=== PATIENT | female | born 1955 | race Caucasian/White ===

== ENCOUNTER → 2020-02-03 09:48 | Outpatient (CLI) | payer OTHER, SELFPAY ==
[2020-02-03 10:43] LABS: Estimated Glomerular Filt Rate > 60.0 mL/min (>60)
--- NOTE | 2020-02-03 10:50 | DI.CT.S_ITS ---
PROCEDURE: CT SOFT TISSUE NECK W CON INDICATIONS: Dysphonia TECHNIQUE: After the administration of intravenous contrast, 3.0 mm axial sections acquired from the sella to the aortic arch. Additional oblique axial 3.0 mm sections acquired through the pharynx. 3 mm thick coronal and sagittal reformats were generated. For radiation dose reduction, the following was used: automated exposure control. COMPARISON: None. FINDINGS: Image quality: Excellent. Lymph nodes: No enlarged lymph nodes seen throughout the neck. Vessels: Visualized vasculature appears patent. There is narrowing of the left brachiocephalic vein, with associated collateral vein formation. Neck spaces: The thyroid cartilage and the hyoid bone demonstrate an unremarkable appearance, without fractures or other deformities. The oropharynx, nasopharynx, and pharynx demonstrate no mucosal lesions. The vocal cords, false vocal cords, pyriform sinuses, epiglottis, vallecula, and tongue base all appear normal. Extramucosal spaces appear unremarkable. Glands: The parotid and submandibular glands appear normal. Thyroid gland demonstrates no significant CT abnormality. Miscellaneous: Visualized brain and orbits appear normal. Lung apices appear clear. Superficial soft tissues appear normal. Bones: No suspicious bony lesions. Visualized sinuses and mastoids appear unremarkable. Relatively prominent cervical spine degenerative changes are seen. There is reversal of the normal cervical lordosis, with the apex at the C5-C6 level. IMPRESSION: No imaging explanation is found for this patient's presenting symptoms. Relatively prominent cervical spine degenerative changes are noted. Narrowing of the left brachiocephalic vein can be seen, with associated collateral vein formation. Dictated by: John Laird M.D. on 02/03/2020 at 10:18 Approved by: John Laird M.D. on 02/03/2020 at 10:20
== END ==
PROVIDERS: PCP Family Medicine; Referring Provider Otolaryngology; Visit Provider Otolaryngology
DX: R49.0 Dysphonia (principal); M47.812 Spondylosis without myelopathy or radiculopathy, cervical region; Z91.041 Radiographic dye allergy status
CPT/HCPCS: 36415; 70491; 82565; Q9967

== ENCOUNTER → 2023-02-01 08:35 | Outpatient (CLI) | payer MEDICARE, MEDICAID, SELFPAY ==
--- NOTE | 2023-02-01 08:37 | DI.MRI.S_ITS ---
PROCEDURE: MR ANKLE RT WO CON INDICATIONS: R/O OCCULT FRACTURE/LUMBAR RADICULOPATHY TECHNIQUE: Noncontrast sagittal T1 spin echo and T2 fast spin echo with fat saturation, axial proton density fast spin echo and T2 fast spin echo with fat saturation, coronal T1 spin echo and T2 fast spin echo with fat saturation through the ankle/hindfoot. COMPARISON: None. FINDINGS: Image quality: Excellent. Bones and joints: Significant marrow edema involving distal portion of lateral malleolus is seen with subtle internal linear hypointense signal concerning for incomplete/nondisplaced lateral malleolus fracture. Osteoarthritic changes are noted throughout midfoot and hindfoot joints. No other fracture or dislocation. No gross osteochondral injuries of talar dome. Small amount of tibiotalar and subtalar joint effusion is seen, no gross loose bodies. Medial structures: The posterior tibialis tendon is thickened with small amount of fluid distending tendon sheath. The flexor digitorum longus, and flexor hallucis longus tendons are intact. The posterior tibial neurovascular bundle appears normal within the tarsal tunnel, without extrinsic mass effect. The deep layer (anterior and posterior tibiotalar ligaments) and superficial layer (tibionavicular, tibiospring, and tibiocalcaneal ligaments) of the deltoid ligament appear normal. The spring ligament components (superomedial calcaneonavicular, medioplantar oblique calcaneonavicular, and inferoplantar longitudinal ligaments) are intact. Lateral structures: The anterior talofibular, calcaneofibular, and posterior talofibular ligaments appear thickened with intrasubstance T2 hyperintense signal.. More superiorly, the anterior and posterior tibiofibular ligaments appear intact, as is the intermalleolar ligament. The tibiofibular syndesmosis is normal in width at 2 mm or less. The peroneus longus and brevis tendons are thickened with small to moderate amount of fluid distending tendon sheath extending from the level of lateral malleolus to their distal insertions. Adjacent bony peroneal tubercle and retrotrochlear prominence are normal in size. The sinus tarsi demonstrates normal fatty signal, without edema, fibrosis, or cyst formation. Visualized sinus tarsi components (cervical ligament, interosseous talocalcaneal ligament, roots of the inferior extensor retinaculum) appear normal. The calcaneonavicular and calcaneocuboid components of the bifurcate ligament appear intact. The dorsal calcaneocuboid ligament appears intact. Anterior structures: The tibialis anterior, extensor hallucis longus, and extensor digitorum longus tendons appear intact. The dorsal talonavicular ligament appears intact. Posterior and plantar structures: Achilles tendon is intact. Medial and lateral bands of the plantar fascia are of normal thickness. No abductor digiti quinti muscle atrophy to suggest Brian neuropathy. IMPRESSION: 1. Finding is concerning for incomplete/nondisplaced fracture involving distal portion of lateral malleolus as described above. No other fracture or dislocation. 2. [id number] midfoot and hindfoot joint osteoarthritis. No gross osteochondral injuries. Small to moderate joint effusion, no gross loose bodies. 3. Low-grade tenosynovitis involving posterior tibialis tendon and peroneus tendons as above. No ankle tendon rupture. 4. Low to moderate grade sprain/partial-thickness tear involving anterior and posterior talofibular ligaments and calcaneofibular ligament. Dictated by: Veto Hamilton M.D. on 02/03/2023 at 10:25 Approved by: Veto Hamilton M.D. on 02/03/2023 at 10:31
--- NOTE | 2023-02-01 08:38 | DI.MRI.S_ITS ---
PROCEDURE: MR LUMBAR SPINE WO CON INDICATIONS: R/O OCCULT FRACTURE/LUMBAR RADICULOPATHY TECHNIQUE: Noncontrast sagittal T1 spin echo and T2 fast echo, sagittal STIR, and T2 fast spin echo through the lumbar spine. In cases with scoliosis, additional coronal T2 fast spin echo may be performed. COMPARISON: None. FINDINGS: Image quality: Excellent. Alignment and Curvature: There is normal bony alignment. Bone Marrow: Marrow is of normal overall signal. No acute vertebral body compression fractures. Spinal Cord: Conus medullaris terminates at the L1 level. Visualized cord demonstrates normal signal and size. Paraspinous Soft Tissues: No paravertebral masses. T12-L1: Mild disc desiccation and height loss. Broad-based disc bulge. Mild facet ligamentum flavum hypertrophy. No canal stenosis. No foraminal stenosis. L1-L2: Moderate disc desiccation and height loss. Reactive endplate changes. Broad-based disc bulge. Mild facet ligamentum flavum hypertrophy. Mild right and moderate left foraminal stenosis. L2-L3: Mild disc desiccation and height loss. Broad-based disc bulge. Mild facet ligamentum flavum hypertrophy. No canal stenosis. Mild bilateral foraminal stenosis. L3-L4: Mild disc desiccation and height loss. Broad-based disc bulge. Moderate facet ligamentum flavum hypertrophy. No canal stenosis. No foraminal stenosis. L4-L5: Mild disc desiccation and height loss. Broad-based disc bulge. Moderate facet ligamentum flavum hypertrophy. There is a focal posterior high-intensity zone. No canal stenosis. Mild bilateral foraminal stenosis. L5-S1: Moderate disc desiccation and height loss. Broad-based disc bulge. Mild facet sclerosis. No canal stenosis. Mild bilateral foraminal stenosis. IMPRESSION: 1. Disc desiccation and height loss throughout the lumbar spine most severe at L1-2 and L5-S1. 2. Posterior annular tear at L4-5. 3. No significant canal stenosis of the lumbar spine. 4. Moderate left foraminal stenosis at L1-2. No other significant foraminal narrowing of the lumbar spine. Dictated by: Irma Souza M.D. on 02/03/2023 at 8:49 Approved by: Irma Souza M.D. on 02/03/2023 at 9:10
== END ==
PROVIDERS: PCP Family Medicine; Referring Provider Orthopaedic Surgery; Visit Provider Orthopaedic Surgery
DX: M47.26 Other spondylosis with radiculopathy, lumbar region (principal); M51.16 Intervertebral disc disorders with radiculopathy, lumbar region; M51.17 Intervertebral disc disorders with radiculopathy, lumbosacral region; M48.061 Spinal stenosis, lumbar region without neurogenic claudication; S93.411A Sprain of calcaneofibular ligament of right ankle, initial encounter; S93.491A Sprain of other ligament of right ankle, initial encounter; M19.071 Primary osteoarthritis, right ankle and foot; M25.474 Effusion, right foot; M65.871 Other synovitis and tenosynovitis, right ankle and foot; X58.XXXA Exposure to other specified factors, initial encounter
CPT/HCPCS: 72148; 73721

== ENCOUNTER → 2023-04-25 11:37 | Outpatient (CLI) | payer MEDICARE, MEDICAID, SELFPAY ==
[2023-04-26 05:18] LABS: Labcorp Hemoglobin (Hb) A1c 5.4 % (4.8-5.6)
== END ==
PROVIDERS: PCP Family Medicine; Referring Provider Pediatrics; Visit Provider Pediatrics
DX: G62.9 Polyneuropathy, unspecified (principal)
CPT/HCPCS: 36415; 83036